=== PATIENT | female | born 1945 | race Caucasian/White ===

== ENCOUNTER → 2024-09-21 12:32 | Outpatient (REF) | payer MEDICARE, SELFPAY ==
[2024-09-21 14:15] LABS: ALT (SGPT) 20 U/L (0-35); AST (SGOT) 29 U/L (14-36); Albumin 4.2 g/dl (3.5-5.0); Alkaline Phosphatase 56 U/L (38-126); Blood Urea Nitrogen 12 mg/dl (7-17); Calcium 9.2 mg/dl (8.4-10.2); Carbon Dioxide 32 mmol/L (22-30); Chloride 100 mmol/L (98-107); Glucose 97 mg/dl (70-99); HDL Cholesterol 33 mg/dl; LDL Cholesterol, Calculated 99 mg/dl; Potassium 4.6 mmol/L (3.5-5.1); Sodium 140 mmol/L (135-145); Total Bilirubin 0.6 mg/dl (0.2-1.3); Total Cholesterol 157 mg/dl (50-199); Total Protein 6.8 g/dl (6.3-8.2); Triglyceride 128 mg/dl (10-149); Very Low Density Lipoprotein 25 mg/dl (0-30); eGFR > 60.00
[2024-09-21 16:22] LABS: Vitamin D, 25-OH*** 43.6 ng/mL (30-80)
== END ==
LOC: REG 12:32
PROVIDERS: ATTENDING PHYSICIAN Internal Medicine
DX: E78.5 Hyperlipidemia, unspecified (principal); M85.89 Other specified disorders of bone density and structure, multiple sites; E55.9 Vitamin D deficiency, unspecified
CPT/HCPCS: 36415; 80053; 80061; 82306

== ENCOUNTER → 2024-10-12 14:18 | Outpatient (REF) | payer MEDICARE, SELFPAY | LOC: RAD 14:18 | PROVIDERS: ATTENDING PHYSICIAN Internal Medicine | DX: R91.1 Solitary pulmonary nodule (principal) | CPT/HCPCS: 71250 ==

== ENCOUNTER → 2025-03-13 12:08 | Outpatient (REF) | payer MEDICARE, SELFPAY | LOC: MRI 3T 12:08 | PROVIDERS: ATTENDING PHYSICIAN Psychiatry & Neurology Neurology; FAMILY PHYSICIAN Internal Medicine | DX: R41.3 Other amnesia (principal) | CPT/HCPCS: 70551 ==

== ENCOUNTER 2025-04-12 09:06 | Emergency (ER) | payer MEDICARE, SELFPAY ==
[2025-04-12 09:15] VITALS: BP 152/66
[2025-04-12 09:31] VITALS: BMI 28.7
[2025-04-12 09:49] LABS: % Immature Granulocytes 0.5 % (0-0.5); % Lymphocytes 16.4 % (20.5-51.1); % Monocytes 7.3 % (1.7-9.3); % Neutrophils 75.8 % (42.2-75.2); Absolute Lymphocytes 0.7 10^3/uL (1.2-3.4); Absolute Monocytes 0.3 10^3/uL (0.1-0.6); Absolute Neutrophils 3.3 10^3/uL (1.4-6.5); Hematocrit 35.1 % (37.0-47.0); Hemoglobin 11.8 g/dL (12.0-16.0); Mean Corp Hgb Conc. 33.6 g/dL (33.0-37.0); Mean Corpuscular Hgb 28.2 pg (27.0-31.0); Mean Corpuscular Volume 83.8 fL (81.0-99.0); Mean Platelet Volume 9.3 fL (7.4-10.4); Nucleated Red Blood Cells % 0 %; Platelet Count 130 10^3/uL (130-400); Red Blood Cell Count 4.19 10^6/uL (4.20-5.40); Red Cell Dist. Width 14.8 % (11.5-14.5); White Blood Cell Count 4.4 10^3/uL (4.8-10.8)
[2025-04-12 10:04] LABS: ALT (SGPT) 19 U/L (0-35); AST (SGOT) 25 U/L (14-36); Alkaline Phosphatase 55 U/L (38-126); Blood Urea Nitrogen 13 mg/dl (7-17); Calcium 8.9 mg/dl (8.4-10.2); Carbon Dioxide 32 mmol/L (22-30); Chloride 105 mmol/L (98-107); Estimated Creatinine Clearance 57 ml/min; Glucose 115 mg/dl (70-99); Potassium 4.3 mmol/L (3.5-5.1); Sodium 141 mmol/L (135-145); Total Bilirubin 0.5 mg/dl (0.2-1.3); Total Protein 6.8 g/dl (6.3-8.2); eGFR > 60.00
[2025-04-12 10:05] LABS: Alcohol None Detected
[2025-04-12 10:11] LABS: Troponin I < 0.012 ng/ml
[2025-04-12 10:28] VITALS: BP 162/71
[2025-04-12 11:14] VITALS: BP 155/61
[2025-04-12 12:01] VITALS: BP 164/77
[2025-04-12 13:00] VITALS: BP 165/67
[2025-04-12 13:15] LABS: Troponin I < 0.012 ng/ml
--- NOTE | 2025-04-12 13:47 | ED.GENMED ---
History of Present Illness
General
Chief Complaint: Chest Pain
Source: patient
Exam Limitations: none
Time Seen by Provider: 04/12/25 09:16
History of Present Illness
History of Present Illness:
79-year-old female presents after she developed some chest burning after she took her morning medications. She states she is not sure if they got stuck or what happened but she had pain that has since resolved. Patient states she took her morning
medications and started having this discomfort. Denies shortness of breath. Denies fevers. Also called a nurse on the phone who advised her to come for evaluation as she did not like the way she was speaking. Patient states her speech is normal
for her. No vomiting. No headache. No motor weakness.
Past History
Past History
ED Past Medical History: Hypothyroidism and Other (arthritis and fibromyalgia)
ED Past Surgical History: Other (Status post thyroidectomy, lumbar fusion, rotator cuff surgery)
Social History
Tobacco: Non-smoker
Alcohol: Occasional
Drug: None
Personal:
Living: with family
Employment: Not employed
Family History
Family History: Other (Noncontributory)
Phy Exam
Physical Exam
Physical Exam:
CONSTITUTIONAL Patient alert and oriented to person, place and time. Well-appearing. Vital signs reviewed.
HEAD atraumatic, normocephalic.
EYES eyelids normal to inspection, Extraocular muscles intact, Conjunctiva normal, Sclera normal.
NECK normal range of motion, Trachea midline, no jugular venous distention.
RESPIRATORY CHEST No respiratory distress noted, Chest expansion equal, Bilateral breath sounds clear.
CARDIOVASCULAR regular rate and rhythm, Heart sounds normal.
ABDOMEN abdomen nontender, Bowel sounds normal. No distention.
BACK normal inspection, no obvious deformities
UPPER EXTREMITY range of motion normal, Motor strength normal, no cyanosis, no edema.
LOWER EXTREMITY range of motion normal, Motor strength normal, no cyanosis, no edema.
NEURO No focal motor deficits, Linda coma scale 15, Memory normal, Cranial Nerves intact to screening exam. Patient is able to answer all questions on NIH stroke scale of speech exam. There is very slight dysarthria noted but patient states
this is her normal speech.
SKIN skin warm, dry, and normal in color.
Scores
Heart Score for Chest Pain Patients
STEMI patient?: No
History: Slightly or Non-Suspicious
ECG: Nonspecific Repolarization
Age: >/= 65 years
Risk Factors: 1 or 2 Risk Factors
Troponin: </= Normal Limit
Heart Score for Chest Pain Patients: 4
Heart Score Risk: 20.3% MACE over next 6 weeks
Course
Orders/Labs/Results
Orders:
Orders
04/12/25 09:14
Electrocardiogram (*1) Urgent
Reason for Study: Chest Pain
EKG- Treatment ONCE
04/12/25 09:39
Alcohol Urgent
Complete Blood Count/With Diff Urgent
Comprehensive Metabolic Panel Urgent
Troponin I Urgent
04/12/25 09:56
CR Chest - 2 Views Urgent
Comment:
Reason For Exam: cp
04/12/25 10:15
CT Head W/o Iv Contrast Urgent
Comment:
Reason For Exam: dysarthria
04/12/25 12:42
Troponin I Urgent
Abnormal Lab Results
04/12/25
09:39
WBC 4.4 L 10^3/uL
(4.8-10.8)
RBC 4.19 L 10^6/uL
(4.20-5.40)
Hgb 11.8 L g/dL
(12.0-16.0)
Hct 35.1 L %
(37.0-47.0)
RDW 14.8 H %
(11.5-14.5)
Absolute Lymphs (auto) 0.7 L 10^3/uL
(1.2-3.4)
Neutrophils % 75.8 H %
(42.2-75.2)
Lymphocytes % 16.4 L %
(20.5-51.1)
Carbon Dioxide 32 H mmol/L
(22-30)
Glucose 115 H mg/dl
(70-99)
04/12/25 09:39
04/12/25 09:39
Vital Signs
Initial and Last Documented VS:
Initial Vital Signs
Temp Pulse Resp BP Pulse Ox
98.2 F 86 18 152/66 95
04/12/25 09:15 04/12/25 09:15 04/12/25 09:15 04/12/25 09:15 04/12/25 09:15
Last Documented Vital Signs
Temp Pulse Resp BP Pulse Ox
98.2 F 88 21 165/67 97
04/12/25 09:15 04/12/25 13:45 04/12/25 13:45 04/12/25 13:00 04/12/25 12:01
MDM/Problems Addressed
Differential Diagnosis Includes:
Acute coronary syndrome, esophageal spasm, esophagitis, pill esophagitis
MDM/Problems Addressed:
Chest pain
*Radiology
Radiology exam reviewed: radiology read reviewed
*Pulse Oximetry
Patient hypoxic: no
*EKG
Interpreted by ED Provider?: Yes
Interpretation: normal
Rate: normal
Rhythm: sinus
[place]: normal axis
Ischemia: no ischemia
*[facility] [employer] Interpretation
Rate: normal
Interpretation: normal
Rhythm: sinus
*Critical Care Note
Total Time (30-74mins, 75-104mins- exclusive of procedures): Not Applicable
Data Reviewed
Source: patient
Prescriptions/Medications Considered But Not Given:
Consider nitroglycerin patient states symptoms have resolved.
Patient Management
Escalation/DeEscalation of care consider admission/obs:
Chest symptoms after taking her morning medications. Question whether it could be GI related as both troponins are negative. Will refer to outpatient cardiology follow-up hotline. Patient stable will follow-up as outpatient. Also strict return
warnings were advised and patient agrees
ED Attending Note
-
Portions of this chart may have been created with voice recognition software.� Occasional wrong word or��sound alike� substitutions may have occurred due to the inherent limitations of voice recognition software.
Discharge Plan
Departure
Patient Disposition: Home (Routine Discharge)
Date of Disposition: 04/12/25
Time of Disposition: 13:48
Patient with high blood pressure during this ER visit?: Yes
Discharge Problem:
Chest pain
Instructions: Chest Pain CBC Follow Up
Prescriptions:
No Action
sertraline 100 MG tablet
100 mg PO DAILY
levothyroxine 100 MCG capsule
100 mcg PO DAILY
cyanocobalamin (vitamin B-12) 1,000 MCG tablet
1,000 mcg PO DAILY
cholecalciferol (vitamin D3) 250 MCG capsule
10,000 unit PO DAILY
zinc amino acid chelate 50 MG tablet
50 mg PO DAILY
Iron
65 mg PO DAILY
Vitamin A
2,500 mcg PO DAILY
mupirocin 1 APPLIC ointment
1 applic intranasal BID Qty: 1 0RF
Patient Comments:
patient started treatment on 04/01/21 and was taking BID. last took at home 04/03/21 in evening
quetiapine 200 MG tablet
200 mg PO HS
sennosides [senna] 1 TABLET tablet
2 tab PO BID 0RF
aspirin 325 MG tablet
325 mg PO DAILY Qty: 28 0RF
Rx Instructions:
Take daily x4 weeks for blood clot prevention.
famotidine 20 MG tablet
20 mg PO HS Qty: 30 0RF
Rx Instructions:
Take nightly while on Meloxicam.
magnesium hydroxide 30 ML suspension
30 ml PO DAILYPRN PRN (Reason: constipation) 0RF
docusate sodium 100 MG capsule
100 mg PO BID 0RF
oxycodone 5 MG tablet
5 mg PO Q6HPRN PRN (Reason: moderate-severe pain) Qty: 30 0RF
Rx Instructions:
1 tab moderate pain or 2 if pain severe
Dx total joint replacement
ongoing therapy
acetaminophen [Tylenol Extra Strength] 500 MG tablet
1,000 mg PO Q6H Qty: 60 0RF
Rx Instructions:
Do not exceed >4000 mg daily.
meloxicam 7.5 MG tablet
7.5 mg PO DAILY Qty: 0 0RF
Rx Instructions:
Home medication.
Take with food. Do not take within 2 hours of Aspirin.
Referrals:
Gisell Raygoza NP [Family Provider] -
Activity Restrictions/Additional Instructions:
Please avoid strenuous or exertional activity until cleared by cardiology. Please see cardiology in the next 48 hours for reevaluation. Return immediately for worsening pain, shortness breath, palpitations, sweating, nausea, weakness of any kind,
numbness, tingling or any other concerns.
Cardiology has been notified and a follow up appointment has been requested. Someone will call you on the next business day to schedule a follow up appointment.
Interventions
Interventions:
*Risk Screen - Suicide Last Done: 04/12/25 09:15
*General Assessment Last Done: 04/12/25 09:15
*Nursing Disposition Last Done: 04/12/25 14:39
ED- Cardiac Assessment Last Done: 04/12/25 09:31
Discharge Date and Time
Discharge Date/Time: 04/12/25 14:39
Print Language: LITHUANIAN
== END 2025-04-12 14:39 | disposition home or self-care (01) ==
LOC: EMR 09:06
PROVIDERS: Emergency Medicine; EMERGENCY PHYSICIAN Emergency Medicine; FAMILY PHYSICIAN Internal Medicine
DX: R07.89 Other chest pain (principal); E03.9 Hypothyroidism, unspecified; M19.90 Unspecified osteoarthritis, unspecified site; M79.7 Fibromyalgia
CPT/HCPCS: 99284; 70450; 71046; 80053; 82077; 84484; 85025; 93005

== ENCOUNTER → 2025-05-21 07:20 | Outpatient (REF) | payer MEDICARE, SELFPAY ==
[2025-05-21] MEDS: LEXISCAN 0.4 MG IV (08:55)
[2025-05-21] MEDS: AMINOPHYLLINE 75 MG IV (08:56)
== END ==
LOC: RCS 07:20
PROVIDERS: ATTENDING PHYSICIAN Internal Medicine Cardiovascular Disease; FAMILY PHYSICIAN Internal Medicine
DX: R07.89 Other chest pain (principal); E78.00 Pure hypercholesterolemia, unspecified
CPT/HCPCS: 78452; 93017; A9500; J2785